=== PATIENT | female | born 1970 | race Caucasian/White ===

== ENCOUNTER 2017-02-05 19:08 | Emergency (ER) | payer OTHER ==
[~2017-02-05] VITALS: Ht 175.3 cm; Wt 77.3 kg
[~2017-02-05 19:08] MED LIST: ABILIFY 10MG TA10 MG PO; ADDERALL XR25 MG PO; AMBIEN 5MG TABLE5 MG PO; BUSPAR DIVIDOSE15 MG PO; CEFTIN500 MG PO; CEPHALEXIN500 M1 PO; CHANTIX START M1 TAB PO; CLEOCIN HC150 MG/CAP PO; COLACE 100100 MG/CAP PO; DESYREL 50MG50 MG PO; FLEXERIL 1010 MG/TAB PO; FOCALIN XR15 MG PO; IRON FERROUS S325 MG PO; LAMICTAL 25MG T25 MG PO; LAMICTAL200 MG PO; NEXIUM 40MG40 MG PO; NORCO 325 MG-51 TAB PO; PREDNISONE10 MG PO; PROAIR HFA0.09 MG/AC IH; PROZAC 20MG20 MG PO; PROZAC40 MG PO; RT ADVAIR HFA 1112 G IH; SEROQUEL 2525 MG/TAB PO; SEROQUEL XR400 M1 PO; SPIRIVA RE2.5 MCG/Ac IH; XANAX 1MG1 MG PO; ZYRTEC 10MG10 MG PO
[2017-02-05 19:18] VITALS: BP 132/69; PULSE 103; TEMP 98.1
[2017-08-16] MEDS ORDERED: NATURAL IRON65 MG PO (13:14)
== END 2017-02-05 20:20 | disposition home or self-care (01) ==
LOC: COL.ER 19:08
DX: S93.602A Unspecified sprain of left foot, initial encounter (principal); X50.1XXA Overexertion from prolonged static or awkward postures, initial encounter

== ENCOUNTER → 2017-08-16 | Outpatient (CLI) | payer OTHER ==
[~2017-08-16] VITALS: Ht 170.2 cm; Wt 98.4 kg
[~2017-08-16] MED LIST changes: +NATURAL IRON65 MG PO
[2017-08-16 13:14] VITALS: BP 120/86; PULSE 72
== END ==
LOC: LIGHT 10:18
DX: Z98.84 Bariatric surgery status (principal); M54.5 Low back pain; E66.9 Obesity, unspecified; Z68.34 Body mass index [BMI] 34.0-34.9, adult; Z71.3 Dietary counseling and surveillance

== ENCOUNTER → 2017-09-06 | Outpatient (CLI) | payer OTHER ==
[~2017-09-06] MED LIST changes: +FOCALIN XR25 MG PO; +PRILOSEC 20MG20 MG PO
== END ==
LOC: LIGHT 08-24 09:44
DX: Z01.89 Encounter for other specified special examinations (principal)

== ENCOUNTER 2017-09-07 06:21 | Day surgery (SDC) | payer OTHER ==
[~2017-09-07] VITALS: Ht 175.3 cm; Wt 99.3 kg
[~2017-09-07 06:21] MED LIST changes: -FOCALIN XR25 MG PO; -PRILOSEC 20MG20 MG PO
[2017-09-07 06:56] VITALS: BP 121/68; PULSE 83; TEMP 98.1
[2017-09-07] MEDS ORDERED: ABILIFY 10MG TA10 MG PO (07:01)
[2017-09-07] MEDS ORDERED: BUSPAR DIVIDOSE15 MG PO (07:01)
[2017-09-07] MEDS ORDERED: FOCALIN XR25 MG PO (07:02)
[2017-09-07] MEDS ORDERED: LAMICTAL200 MG PO (07:02)
[2017-09-07] MEDS ORDERED: PROZAC40 MG PO (07:03)
[2017-09-07] MEDS ORDERED: SEROQUEL XR400 M1 PO (07:04)
[2017-09-07 08:00] VITALS: BP 92/56; PULSE 80; TEMP 98.3
[2017-09-07 08:15] VITALS: BP 103/64; PULSE 73
[2017-09-07] MEDS ORDERED: PRILOSEC 20MG20 MG PO (08:25)
[2017-09-07 08:30] VITALS: BP 96/65; PULSE 70
[2017-09-07 08:45] VITALS: BP 115/68; PULSE 72
[2017-09-07 09:25] VITALS: BP 123/79; PULSE 73
== END 2017-09-07 09:05 | disposition home or self-care (01) ==
LOC: SDCO 06:21
DX: K29.30 Chronic superficial gastritis without bleeding (principal); E66.9 Obesity, unspecified; Z68.34 Body mass index [BMI] 34.0-34.9, adult
CPT/HCPCS: OP; J2250; J3010; J7030